=== PATIENT | female | born 1960 | race American Indian/Alaskan Native ===

== ENCOUNTER 2020-06-15 08:00 | Outpatient (CLI) | payer BC ==
[2020-06-15 18:12] LABS: BASOPHILS % (AUTO) 0.7 %; EOSINOPHILS # (AUTO) 0.1 10^3/uL (0.0-0.7); EOSINOPHILS % (AUTO) 1.7 %; HGB - HEMOGLOBIN 14.3 g/dL (12.0-16.0); LYMPHOCYTES # (AUTO) 1.2 10^3/uL (1.5-3.5); LYMPHOCYTES % (AUTO) 21.1 %; MEAN CORPUSCULAR HGB CONC 32.7 g/dL (32.0-36.0); MEAN CORPUSCULAR VOLUME 85.7 fL (81.0-99.0); MEAN PLATELET VOLUME 11.6 fL (7.9-10.8); MONOCYTES # (AUTO) 0.3 10^3/uL (0.0-1.0); MONOCYTES % (AUTO) 4.9 %; NEUTROPHILS # (AUTO) 4.2 10^3/uL (1.5-6.6); NEUTROPHILS % (AUTO) 71.4 %; PLT - PLATELET COUNT 243 10^3/uL (130-450); RED CELL DISTRIBUTION WIDTH 13.7 % (12.0-15.0); WHITE BLOOD COUNT 5.9 x10^3/uL (4.8-10.8)
[2020-06-15 19:41] LABS: ALBUMIN 4.6 g/dL (3.2-5.5); ALBUMIN/GLOBULIN RATIO 1.5 (1.0-2.2); ALKALINE PHOSPHATASE 63 IU/L (42-121); ALT ALANINE AMINOTRANSFERASE 73 IU/L (10-60); AST ASPARTATE AMINOTRANSFERASE 47 IU/L (10-42); BILIRUBIN,TOTAL 1.2 mg/dL (0.2-1.0); BUN - BLOOD UREA NITROGEN 13 mg/dL (6-20); CALCIUM 9.7 mg/dL (8.5-10.3); CARBON DIOXIDE - CO2 24 mmol/L (21-32); CHLORIDE 104 mmol/L (101-111); CHOL/HDL RATIO 4.5 (<4.4); CHOLESTEROL 276 mg/dL; CREATININE 0.7 mg/dL (0.4-1.0); GLUCOSE 98 mg/dL (70-100); HDL CHOLESTEROL 62 mg/dL; LDL CHOLESTEROL,CALCULATED 197 mg/dL; LDL/HDL RATIO 3.2 (<4.4); SODIUM 141 mmol/L (135-145); TOTAL PROTEIN 7.6 g/dL (6.7-8.2); VLDL CHOLESTEROL 17 mg/dL
== END 2020-06-15 23:59 | disposition home or self-care (01) ==
LOC: LAB.WCP 08:00
PROVIDERS: ATTEND Nurse Practitioner
DX: Z13.220 Encounter for screening for lipoid disorders (principal); Z13.228 Encounter for screening for other metabolic disorders; J45.909 Unspecified asthma, uncomplicated; Z85.3 Personal history of malignant neoplasm of breast; E55.9 Vitamin D deficiency, unspecified
CPT/HCPCS: 36415; 80053; 80061; 82306; 83721; 84443; 85025

== ENCOUNTER 2020-08-09 08:00 | Outpatient (CLI) | payer BC ==
[2020-08-10 10:58] LABS: BILIRUBIN,URINE NEGATIVE (NEGATIVE); GLUCOSE, URINE (UA) NEGATIVE (NEGATIVE); KETONES,URINE (UA) NEGATIVE (NEGATIVE); LEUKOCYTE ESTERASE, URINE NEGATIVE (NEGATIVE); NITRITE,URINE NEGATIVE (NEGATIVE); OCCULT BLOOD,URINE NEGATIVE (NEGATIVE); PH,URINE 5.5 PH (5.0-7.5); PROTEIN,URINE NEGATIVE (NEGATIVE); UROBILINOGEN,URINE 0.2 (NORMAL) E.U./dL (NORMAL)
[2020-08-10 11:03] LABS: CLARITY,URINE CLOUDY (CLEAR)
[2020-08-10 11:23] LABS: BACTERIA,URINE Few /HPF (None Seen); RBC,URINE None Seen /HPF (0-5); SQUAMOUS EPITHELIAL CELL,UR FEW Squamous (<= Few)
[2020-08-10 11:24] LABS: AMORPHOUS SEDIMENT,UR Moderate /LPF
== END 2020-08-09 23:59 | disposition home or self-care (01) ==
LOC: LAB.R 08:00
PROVIDERS: ATTEND Obstetrics & Gynecology
DX: R30.0 Dysuria (principal)
CPT/HCPCS: 81001; 87086

== ENCOUNTER 2020-09-29 08:00 | Outpatient (CLI) | payer BC ==
[2020-09-29 18:29] LABS: BILIRUBIN,URINE NEGATIVE (NEGATIVE); GLUCOSE, URINE (UA) NEGATIVE (NEGATIVE); KETONES,URINE (UA) NEGATIVE (NEGATIVE); LEUKOCYTE ESTERASE, URINE NEGATIVE (NEGATIVE); NITRITE,URINE NEGATIVE (NEGATIVE); OCCULT BLOOD,URINE NEGATIVE (NEGATIVE); PROTEIN,URINE NEGATIVE (NEGATIVE); UROBILINOGEN,URINE 0.2 (NORMAL) E.U./dL (NORMAL)
[2020-09-29 18:45] LABS: BACTERIA,URINE None Seen /HPF (None Seen); CLARITY,URINE CLEAR (CLEAR); RBC,URINE None Seen /HPF (0-5); SQUAMOUS EPITHELIAL CELL,UR RARE Squamous (<= Few); WBC,URINE 0-3 /HPF (0-5)
[2020-09-29 18:53] LABS: ALBUMIN 4.6 g/dL (3.2-5.5); ALBUMIN/GLOBULIN RATIO 1.6 (1.0-2.2); ALKALINE PHOSPHATASE 63 IU/L (42-121); ALT ALANINE AMINOTRANSFERASE 52 IU/L (10-60); AST ASPARTATE AMINOTRANSFERASE 41 IU/L (10-42); BILIRUBIN,TOTAL 0.6 mg/dL (0.2-1.0); BUN - BLOOD UREA NITROGEN 13 mg/dL (6-20); CALCIUM 9.1 mg/dL (8.5-10.3); CARBON DIOXIDE - CO2 26 mmol/L (21-32); CHLORIDE 103 mmol/L (101-111); CHOLESTEROL 211 mg/dL; CREATININE 0.7 mg/dL (0.4-1.0); GFR - MDRD 85 (>89); GLUCOSE 95 mg/dL (70-100); HDL CHOLESTEROL 52 mg/dL; LDL CHOLESTEROL,CALCULATED 143 mg/dL; POTASSIUM 4.1 mmol/L (3.5-5.0); SODIUM 137 mmol/L (135-145); TOTAL PROTEIN 7.5 g/dL (6.7-8.2); TRIGLYCERIDES 81 mg/dL; VLDL CHOLESTEROL 16 mg/dL
[2020-09-29 18:54] LABS: CHOL/HDL RATIO 4.1 (<4.4); LDL/HDL RATIO 2.8 (<4.4)
== END 2020-09-29 23:59 | disposition home or self-care (01) ==
LOC: LAB.WCP 08:00
PROVIDERS: ATTEND Obstetrics & Gynecology
DX: E78.5 Hyperlipidemia, unspecified (principal); R79.89 Other specified abnormal findings of blood chemistry; E55.9 Vitamin D deficiency, unspecified; R30.0 Dysuria
CPT/HCPCS: 36415; 80053; 80061; 81001; 82306; 83721; 87086

== ENCOUNTER 2020-11-22 12:26 | Outpatient (CLI) | payer BC ==
--- NOTE | 2020-11-23 13:16 | Mammography Report ---
BILATERAL DIGITAL SCREENING MAMMOGRAM 3D/2D WITH AUGMENTATION: 11/22/2020 CLINICAL: Routine screening. Comparison is made to exam dated: 01/08/2020 [facility]. The tissue of both breasts is predominantly fatty. Right breast implant is stable. Left breast implant is intact. No significant masses, calcifications, or other findings are seen in either breast. There has been no significant interval change. IMPRESSION: NEGATIVE There is no mammographic evidence of malignancy. A 1 year screening mammogram is recommended. This exam was interpreted at Station ID: [id number]. NOTE: For mammograms, a report in lay terms will be sent to the patient. Approximately 15% of breast malignancies will not be visualized mammographically. In the management of a palpable breast mass, a negative mammogram must not discourage biopsy of a clinically suspicious lesion. Electronically Signed By: Dangelo Rios M.D., jr/trish:11/22/2020 15:02:34 ACR BI-RADS Category 1: Negative 3341F PARENCHYMAL PATTERN: (F) - The breast(s) demonstrate(s) diffuse fatty replacement. BI-RADS CATEGORY: (1) - 1 RECOMMENDATION: (ANNUAL) - Recommend routine annual screening mammography. [id number] 1 year screening LATERALITY: (B)
== END 2020-11-22 12:27 | disposition home or self-care (01) ==
LOC: DI 12:26
DX: Z12.31 Encounter for screening mammogram for malignant neoplasm of breast (principal); Z98.82 Breast implant status

== ENCOUNTER 2021-01-31 14:19 | Outpatient (CLI) | payer BC ==
--- NOTE | 2021-01-31 17:47 | XRAY Report ---
PROCEDURE: Lumbar Spine 2 View INDICATIONS: LOW BACK PX TECHNIQUE: 3 views of the lumbar spine were acquired. COMPARISON: None. FINDINGS: Bones: There is apparent lumbarization of S1, with 6 bar-type vertebral bodies noted. Mild degenerati ve anterolisthesis of L4 on L5 and of L3 on L4. Multilevel facet arthropathy. Suspect canal stenosis. No vertebral body compression fractures. No suspicious bony lesions. Soft tissues: Overlying bowel gas pattern is normal. No suspicious soft tissue calcifications. IMPRESSION: 1. There apparently are 6 nonrib-bearing lumbar vertebral bodies. Careful correlation is suggested if surgery is considered. 2. Lower lumbar facet arthropathy with degenerative anterolisthesis. Suspect canal stenosis. No evidence acute bony abnormality of the lumbar spine. If clinical suspicion and/or symptoms persist, further assessment with repeat plain films or advanced imaging (e.g., CT, MRI, or bone scan) may be helpful for further assessment. Reviewed by: Isauro Zarate MD on 01/31/2021 5:46 PM PDT Approved by: Isauro Zarate MD on 01/31/2021 5:46 PM PDT Station ID: [id number]
== END 2021-01-31 14:20 | disposition home or self-care (01) ==
LOC: DI.N 14:19
PROVIDERS: ATTEND Family Medicine
DX: M47.816 Spondylosis without myelopathy or radiculopathy, lumbar region (principal); M43.16 Spondylolisthesis, lumbar region

== ENCOUNTER 2021-05-31 08:00 | Outpatient (CLI) | payer BC | END 2021-05-31 23:59 | LOC: LAB.N 08:00 | PROVIDERS: ATTEND Family Medicine | DX: R30.0 Dysuria (principal) | CPT/HCPCS: 87086 ==

== ENCOUNTER 2021-07-25 08:00 | Outpatient (CLI) | payer BC ==
[2021-07-25 20:11] LABS: BASOPHILS % (AUTO) 0.7 %; EOSINOPHILS # (AUTO) 0.2 10^3/uL (0.0-0.7); HCT - HEMATOCRIT 45.3 % (37.0-47.0); HGB - HEMOGLOBIN 14.4 g/dL (12.0-16.0); LYMPHOCYTES # (AUTO) 1.4 10^3/uL (1.5-3.5); LYMPHOCYTES % (AUTO) 25.4 %; MEAN CORPUSCULAR HEMOGLOBIN 27.9 pg (27.0-31.0); MEAN CORPUSCULAR HGB CONC 31.8 g/dL (32.0-36.0); MEAN CORPUSCULAR VOLUME 87.6 fL (81.0-99.0); MEAN PLATELET VOLUME 12.1 fL (7.9-10.8); MONOCYTES # (AUTO) 0.3 10^3/uL (0.0-1.0); MONOCYTES % (AUTO) 6.1 %; NEUTROPHILS # (AUTO) 3.6 10^3/uL (1.5-6.6); NEUTROPHILS % (AUTO) 64.6 %; PLT - PLATELET COUNT 240 10^3/uL (130-450); RED BLOOD COUNT 5.17 10^6/uL (4.20-5.40); RED CELL DISTRIBUTION WIDTH 13.9 % (12.0-15.0); WHITE BLOOD COUNT 5.6 x10^3/uL (4.8-10.8)
[2021-07-25 20:32] LABS: ALBUMIN 4.5 g/dL (3.2-5.5); ALBUMIN/GLOBULIN RATIO 1.7 (1.0-2.2); ALKALINE PHOSPHATASE 63 IU/L (42-121); ALT ALANINE AMINOTRANSFERASE 50 IU/L (10-60); AST ASPARTATE AMINOTRANSFERASE 34 IU/L (10-42); BILIRUBIN,TOTAL 0.5 mg/dL (0.2-1.0); BUN - BLOOD UREA NITROGEN 14 mg/dL (6-20); CALCIUM 9.1 mg/dL (8.5-10.3); CARBON DIOXIDE - CO2 26 mmol/L (21-32); CHLORIDE 104 mmol/L (101-111); CHOL/HDL RATIO 4.4 (<4.4); CHOLESTEROL 259 mg/dL; CREATININE 0.7 mg/dL (0.4-1.0); GFR - MDRD 85 (>89); GLUCOSE 94 mg/dL (70-100); HDL CHOLESTEROL 59 mg/dL; LDL CHOLESTEROL,CALCULATED 178 mg/dL; POTASSIUM 4.2 mmol/L (3.5-5.0); SODIUM 140 mmol/L (135-145); TOTAL PROTEIN 7.1 g/dL (6.7-8.2); TRIGLYCERIDES 110 mg/dL; VLDL CHOLESTEROL 22 mg/dL
[2021-07-25 21:00] LABS: THYROID STIMULATING HORMONE 4.09 uIU/mL (0.34-5.60)
== END 2021-07-25 23:59 | disposition home or self-care (01) ==
LOC: LAB.WCP 08:00
PROVIDERS: ATTEND Family Medicine
DX: E78.5 Hyperlipidemia, unspecified (principal); R79.89 Other specified abnormal findings of blood chemistry; E55.9 Vitamin D deficiency, unspecified
CPT/HCPCS: 36415; 80053; 80061; 82306; 83721; 84443; 85025

== ENCOUNTER 2021-07-27 08:00 | Outpatient (CLI) | payer BC ==
[2021-07-27 22:36] LABS: BACTERIAL VAGINOSIS DNA NEGATIVE (NEGATIVE); CANDIDA GLABRATA DNA NEGATIVE (NEGATIVE); CANDIDA GROUP DNA NEGATIVE (NEGATIVE); CANDIDA KRUSEI DNA NEGATIVE (NEGATIVE); TRICHOMONAS VAGINALIS DNA NEGATIVE (NEGATIVE)
== END 2021-07-27 23:59 ==
LOC: LAB 08:00
PROVIDERS: ATTEND Obstetrics & Gynecology
DX: N76.0 Acute vaginitis (principal)
CPT/HCPCS: 87661; 87801

== ENCOUNTER 2021-11-23 12:25 | Outpatient (CLI) | payer BC ==
--- NOTE | 2021-11-25 16:22 | Mammography Report ---
BILATERAL DIGITAL SCREENING MAMMOGRAM 3D/2D WITH AUGMENTATION: 11/23/2021 CLINICAL: Routine screening. Personal history of right breast cancer. Comparison is made to exams dated: 11/22/2020 mammogram - [facility], 01/08/2020 mamm ogram, 07/07/2019 breast MRI, and 12/20/2018 ultrasound - [facility]. The tissue of both breasts is predominantly fatty. Right breast implant is stable. Left breast implant is intact. No significant masses, calcifications, or other findings are seen in either breast. There has been no significant interval change. IMPRESSION: NEGATIVE There is no mammographic evidence of malignancy. A 1 year screening mammogram is recommended. This exam was interpreted at Station ID: [id number]. NOTE: For mammograms, a report in lay terms will be sent to the patient. Approximately 15% of breast malignancies will not be visualized mammographically. In the management of a palpable breast mass, a negative mammogram must not discourage biopsy of a clinically suspicious lesion. Electronically Signed By: Dangelo Rios M.D., jr/trish:11/23/2021 14:45:42 ACR BI-RADS Category 1: Negative 3341F PARENCHYMAL PATTERN: (F) - The breast(s) demonstrate(s) diffuse fatty replacement. BI-RADS CATEGORY: (1) - 1 RECOMMENDATION: (ANNUAL) - Recommend routine annual screening mammography. [id number] 1 year screening LATERALITY: (B)
== END 2021-11-23 12:26 | disposition home or self-care (01) ==
LOC: DI.N 12:25
DX: Z12.31 Encounter for screening mammogram for malignant neoplasm of breast (principal); Z85.3 Personal history of malignant neoplasm of breast

== ENCOUNTER 2022-05-03 12:09 | Outpatient (CLI) | payer BC ==
--- NOTE | 2022-05-03 15:05 | Ultrasound Report ---
PROCEDURE: Retroperitoneal INDICATIONS: OVERACTIVE BLADDER, NOCTURIA TECHNIQUE: Real-time scanning was performed of the retroperitoneal organs, with image documentation. COMPARISON: None. FINDINGS: Kidneys: Kidneys are normal in size. Right kidney measures 11.2 cm long; left kidney measures 11.0 cm long. Right renal cortical thickness is 1.3 cm; left renal cortical thickness is 1.5 cm. No aleena id masses, hydronephrosis, or nephrolithiasis. There is a 0.8 cm simple appearing cyst in the medial aspect of the left kidney. Pancreas: Visualized portions of the pancreas are sonographically normal. Aorta: Visualized aorta is normal in caliber at 3 cm or less. Iliac arteries: Proximal common iliac arteries are normal in caliber at 2.5 cm or less. IVC: Intrahepatic inferior vena cava is patent. Bladder: Pre-void bladder volume is 268.3 mL. Post-void residual is 3.8 mL. Pre-void images demons trate no intraluminal masses or stones. On pre-void images, both ureteral jets are noted with color Doppler interrogation. (Of note, ureteral jets may not be detectable in up to 25% of cases due to in sufficient differences in specific gravity between ureteral and bladder urine). Miscellaneous: No free abdominal fluid. Note is made of diffuse increased hepatic echotexture, like ly secondary to fatty infiltration. IMPRESSION: 1. Normal ultrasound appearance of kidneys. No hydronephrosis. 2. A small simple cyst in the left kidney. 3. Normal appearance of urinary bladder. No significant post void residual. 4. Diffuse increased hepatic echotexture, most likely secondary to hepatic fatty infiltration. Other hepatocellular disease could have a similar appearance. Please correlate with liver enzymes. Reviewed by: Sanjuana Corona MD on 05/03/2022 3:04 PM PDT Approved by: Sanjuana Corona MD on 05/03/2022 3:04 PM PDT Station ID: [id number]
== END 2022-05-03 12:10 | disposition home or self-care (01) ==
LOC: DI 12:09
PROVIDERS: ATTEND Urology
DX: N32.81 Overactive bladder (principal); R35.1 Nocturia; N28.1 Cyst of kidney, acquired

== ENCOUNTER 2022-06-22 12:31 | Outpatient (CLI) | payer BC ==
--- NOTE | 2022-06-22 17:46 | DEXA Report ---
PROCEDURE: Dexa Spine and/or Hip INDICATIONS: POST MENOPAUSAL TECHNIQUE: Dual energy x-ray absorptiometry (DXA) was performed on a Storenvy System. Regions measur ed are the AP Spine, femoral neck, and if needed forearm. COMPARISON: None. FINDINGS: Lumbar Spine: Bone Mineral Density 1.089 g/cm/cm,T score -0.8. Left Femoral Neck: Bone Mineral Density 1.144 g/cm/cm, T score 1.1. Left Hip: Bone Mineral Density 1.007 g/cm/cm,T score -0.2. (T score greater or equal to -1.0: NORMAL) (T score from -1.1 to -2.4: OSTEOPENIA) (T score less than or equal to -2.5 to: OSTEOPOROSIS) Impression: Normal bone mineral density. Patients with diagnosis of osteoporosis or osteopenia should have regular bone mineral density assess ment. For those eligible for Medicare, routine testing is allowed once every 2 years. Testing frequ ency can be increased for patients who have rapidly progressing disease or for those who are receivin g medical therapy to restore bone mass. Reviewed by: Manolo Islas MD on 06/22/2022 5:45 PM PST Approved by: Manolo Islas MD on 06/22/2022 5:45 PM PST Station ID: [id number]
== END 2022-06-22 12:32 | disposition home or self-care (01) ==
LOC: DI 12:31
PROVIDERS: ATTEND Nurse Practitioner Family
DX: Z78.0 Asymptomatic menopausal state (principal)

== ENCOUNTER 2022-07-28 08:00 | Outpatient (CLI) | payer BC ==
[2022-07-28 16:36] LABS: BILIRUBIN,URINE NEGATIVE (NEGATIVE); GLUCOSE, URINE (UA) NEGATIVE (NEGATIVE); KETONES,URINE (UA) NEGATIVE (NEGATIVE); LEUKOCYTE ESTERASE, URINE NEGATIVE (NEGATIVE); NITRITE,URINE NEGATIVE (NEGATIVE); OCCULT BLOOD,URINE NEGATIVE (NEGATIVE); PROTEIN,URINE NEGATIVE (NEGATIVE); UROBILINOGEN,URINE 0.2 (NORMAL) E.U./dL (NORMAL)
[2022-07-28 16:40] LABS: CLARITY,URINE CLEAR (CLEAR)
[2022-07-28 16:54] LABS: BACTERIA,URINE None Seen /HPF (None Seen); RBC,URINE 0-5 /HPF (0-5); SQUAMOUS EPITHELIAL CELL,UR FEW Squamous (<= Few); WBC,URINE 0-3 /HPF (0-5)
== END 2022-07-28 23:59 | disposition home or self-care (01) ==
LOC: LAB 08:00
PROVIDERS: ATTEND Nurse Practitioner
DX: R30.0 Dysuria (principal)
CPT/HCPCS: 81001; 87086

== ENCOUNTER 2022-08-14 10:06 | Outpatient (CLI) | payer BC ==
[2022-08-14 12:10] LABS: BASOPHILS % (AUTO) 0.7 %; EOSINOPHILS # (AUTO) 0.2 10^3/uL (0.0-0.7); EOSINOPHILS % (AUTO) 3.2 %; HCT - HEMATOCRIT 43.5 % (37.0-47.0); HGB - HEMOGLOBIN 13.8 g/dL (12.0-16.0); LYMPHOCYTES # (AUTO) 1.6 10^3/uL (1.5-3.5); MEAN CORPUSCULAR HEMOGLOBIN 27.2 pg (27.0-31.0); MEAN CORPUSCULAR HGB CONC 31.7 g/dL (32.0-36.0); MEAN CORPUSCULAR VOLUME 85.8 fL (81.0-99.0); MEAN PLATELET VOLUME 11.6 fL (7.9-10.8); MONOCYTES # (AUTO) 0.4 10^3/uL (0.0-1.0); MONOCYTES % (AUTO) 6.6 %; NEUTROPHILS # (AUTO) 3.4 10^3/uL (1.5-6.6); NEUTROPHILS % (AUTO) 60.5 %; PLT - PLATELET COUNT 240 10^3/uL (130-450); RED BLOOD COUNT 5.07 10^6/uL (4.20-5.40); RED CELL DISTRIBUTION WIDTH 14.6 % (12.0-15.0); WHITE BLOOD COUNT 5.6 x10^3/uL (4.8-10.8)
[2022-08-14 12:43] LABS: ESTIMATED AVERAGE GLUCOSE 117 mg/dL (70-100); HEMOGLOBIN A1c% 5.7 % (4.27-6.07)
[2022-08-14 13:04] LABS: THYROID STIMULATING HORMONE 4.98 uIU/mL (0.34-5.60)
[2022-08-14 13:24] LABS: ALBUMIN 4.2 g/dL (3.2-5.5); ALBUMIN/GLOBULIN RATIO 1.4 (1.0-2.2); ALKALINE PHOSPHATASE 55 IU/L (42-121); ALT ALANINE AMINOTRANSFERASE 62 IU/L (10-60); AST ASPARTATE AMINOTRANSFERASE 40 IU/L (10-42); BILIRUBIN,TOTAL 1.1 mg/dL (0.2-1.0); BUN - BLOOD UREA NITROGEN 16 mg/dL (6-20); CALCIUM 9.1 mg/dL (8.5-10.3); CARBON DIOXIDE - CO2 26 mmol/L (21-32); CHLORIDE 101 mmol/L (101-111); CHOLESTEROL 269 mg/dL; CREATININE 0.7 mg/dL (0.4-1.0); GFR - MDRD 85 (>89); GLUCOSE 99 mg/dL (70-100); HDL CHOLESTEROL 56 mg/dL; LDL CHOLESTEROL,CALCULATED 184 mg/dL; POTASSIUM 4.1 mmol/L (3.5-5.0); SODIUM 135 mmol/L (135-145); TOTAL PROTEIN 7.1 g/dL (6.7-8.2); TRIGLYCERIDES 144 mg/dL; VLDL CHOLESTEROL 29 mg/dL
[2022-08-14 13:25] LABS: CHOL/HDL RATIO 4.8 (<4.4); LDL/HDL RATIO 3.3 (<4.4)
== END 2022-08-14 10:07 | disposition home or self-care (01) ==
LOC: LAB.N 10:06
PROVIDERS: ATTEND Nurse Practitioner Family
DX: Z00.00 Encounter for general adult medical examination without abnormal findings (principal); E55.9 Vitamin D deficiency, unspecified
CPT/HCPCS: 36415; 80053; 80061; 82306; 83036; 83721; 84443; 85025

== ENCOUNTER 2022-11-30 12:39 | Outpatient (CLI) | payer BC ==
--- NOTE | 2022-12-01 09:51 | Mammography Report ---
BILATERAL DIGITAL SCREENING MAMMOGRAM 3D/2D WITH AUGMENTATION: 11/30/2022 CLINICAL: Routine screening. Personal history of right breast cancer. Comparison is made to exams dated: 11/22/2020 mammogram, 11/23/2021 mammogram - [facility], and 01/08/2020 mammogram - [facility]. Both breasts are almost entirely fatty (category a/<25% glandular tissue). Bilateral breast implants are stable. No significant masses, calcifications, or other findings are seen in either breast. There has been no significant interval change. IMPRESSION: BENIGN There is no mammographic evidence of malignancy. A 1 year screening mammogram is recommended. This exam was interpreted at Station ID: [id number]. NOTE: For mammograms, a report in lay terms will be sent to the patient. Approximately 15% of breast malignancies will not be visualized mammographically. In the management of a palpable breast mass, a negative mammogram must not discourage biopsy of a clinically suspicious lesion. Electronically Signed By: Cooper mejia/trish:11/30/2022 13:39:39 letter sent: No_Letter ACR BI-RADS Category 2: Benign Finding(s) 3342F PARENCHYMAL PATTERN: (F) - The breast(s) demonstrate(s) diffuse fatty replacement. BI-RADS CATEGORY: (2) - 2 Mammogram [id number] 1 year screening LATERALITY: (B)
== END 2022-11-30 12:40 | disposition home or self-care (01) ==
LOC: DI 12:39
DX: Z12.31 Encounter for screening mammogram for malignant neoplasm of breast (principal); Z85.3 Personal history of malignant neoplasm of breast

== ENCOUNTER 2023-07-03 12:42 | Emergency (ER) | payer BC ==
[2023-07-03 13:10] VITALS: BP 136/98; O2SAT 97
[2023-07-03] MEDS ORDERED: NIRMATRELVIR/RITONAVIR PREPACK PO STA (14:07)
--- NOTE | 2023-07-03 14:15 | ED Physician Documentation ---
PD HPI URI - Stated complaint Stated Complaint: FEVER/HEAD PX/CHILLS - Chief complaint Chief Complaint: Fever - History obtained from History obtained from: Patient - Additional information Additional information: Patient is a 62-year-old female presenting for medications for presumed COVID. Patient states her tested positive yesterday at the walk-in clinic and was sent to the ER to receive Paxlovid. He is a diabetic. She was told by the walk-in clinic that she should also come to the ER for Paxlovid. She has been having body aches, fatigue, nasal congestion for the past 3 days. Their home COVID tests are so she has not taken one. Denies chest pain, cough or shortness of air. Review of Systems Nose: reports: Congestion Cardiac: denies: Chest pain / pressure Respiratory: denies: Dyspnea GI: denies: Abdominal Pain, Vomiting Neurologic: denies: Headache PD PAST MEDICAL HISTORY - Past Medical History Past Medical History: Yes Cardiovascular: None Respiratory: None Neuro: None Endocrine/Autoimmune: None GI: None : None Psych: None Musculoskeletal: None Derm: None Other Past Medical History: Breast Ca - Past Surgical History Past Surgical History: Yes /PHOTOLITH OPERATOR: Other - Present Medications Home Medications: Ambulatory Orders Medication Instructions Recorded Confirmed Ondansetron Odt [Zofran] 4 mg TL Q6H PRN #10 tablet 07/03/23 - Allergies Allergies/Adverse Reactions: Allergies Allergy/AdvReac Type Severity Reaction Status Date / Time adhesive Allergy Unknown Verified 07/03/23 13:04 codeine Allergy Unknown Verified 07/03/23 13:04 Latex, Natural Rubber Allergy Unknown Verified 07/03/23 13:04 - Social History Does the pt smoke?: No Smoking Status: Never smoker Does the pt drink ETOH?: No Does the pt have substance abuse?: No - Immunizations Immunizations are current?: No Immunizations: TDAP >10years/unknown PD ED PE NORMAL - General General: Alert and oriented X 3, No acute distress, Well developed/nourished - HEENT HEENT: Atraumatic, Moist mucous membranes, Pharynx benign - Neck Neck: Supple, no meningeal sign - Cardiac Cardiac: RRR, Strong equal pulses - Respiratory Respiratory: No respiratory distress, Clear bilaterally - Abdomen Abdomen: Soft, Non tender, Non distended - Derm Derm: Warm and dry - Neuro Neuro: Normal speech Results - Vitals Vitals: Vital Signs - 24 hr 07/03/23 12:59 Temperature 37 C Heart Rate 70 Respiratory 16 Rate Blood Pressure 136/98 H O2 Saturation 97 Oxygen O2 Source Room air PD Medical Decision Making - ED course ED course: Pt with URI symptoms x 3 days. VSS. is positive for COVID. Patient was told by walk-in clinic to come to ER for Paxlovid. She does have a history of asthma. She is not on any medications. Patient is interested in Paxlovid. We reviewed risks and benefits and patient is agreeable. Also reports nausea so prescription for Zofran was sent. Patient is not hypoxic and does Not have clinical signs of sepsis. A COVID test was ordered but apparently was not performed by RN prior to discharge. Would highly suspect that this patient also has COVID given that her is at home with a recent positive test with the same symptoms. Patient counseled on concerning symptoms to return for. Departure - Departure Disposition: Home, Self Care Clinical Impression: Viral illness Condition: Stable Instructions: ED Viral Syndrome Prescriptions: Ondansetron Odt [Zofran] 4 mg TL Q6H PRN #10 tablet PRN Reason: Nausea / Vomiting Comments: Your symptoms are likely related to COVID-19 given your known exposure. After discussion of the risks and benefits we have started you on an antiviral medicine called Paxlovid. This is not a cure for COVID but the goal of this medication is to prevent serious complications requiring hospitalization. I have also sent an antinausea medicine to [facility]. Please continue with acetaminophen or ibuprofen as needed for fever or bodyaches, hydration, plenty of rest. Quarantine per CDC guidelines. You have a Covid test pending. You need to self quarantine until the result is done and negative. Do not leave your house. Do not get near anybody. The results should be done in 4 hours. We will call with a positive result, the fastest way to get a negative result for confirmation though is to go to the hospital website at [email or web address], click on the my amprice tab and sign up for the patient portal. If your COVID test is negative then I would not recommend taking Paxlovid. If any friends or family get sick and would like to have a Covid test done, but do not have signs or symptoms that would necessitate being hospitalized, there are multiple local options for Covid testing. [facility] keeps an updated list of testing and vaccination options at: [email or web address]. Forms: PCP List Discharge Date/Time: 07/03/23 14:37
== END 2023-07-03 14:37 | disposition home or self-care (01) ==
LOC: ED 12:42
DX: B34.9 Viral infection, unspecified (principal)
CPT/HCPCS: 99283; J3490

== ENCOUNTER 2023-09-12 08:11 | Outpatient (CLI) | payer BC ==
[2023-09-12 12:18] LABS: BASOPHILS # (AUTO) 0.1 10^3/uL (0.0-0.1); EOSINOPHILS # (AUTO) 0.2 10^3/uL (0.0-0.7); EOSINOPHILS % (AUTO) 2.9 %; HCT - HEMATOCRIT 44.7 % (37.0-47.0); LYMPHOCYTES # (AUTO) 1.8 10^3/uL (1.5-3.5); LYMPHOCYTES % (AUTO) 29.7 %; MEAN CORPUSCULAR HEMOGLOBIN 27.5 pg (27.0-31.0); MEAN CORPUSCULAR HGB CONC 31.3 g/dL (32.0-36.0); MEAN CORPUSCULAR VOLUME 87.6 fL (81.0-99.0); MEAN PLATELET VOLUME 11.6 fL (7.9-10.8); MONOCYTES # (AUTO) 0.4 10^3/uL (0.0-1.0); MONOCYTES % (AUTO) 6.9 %; NEUTROPHILS # (AUTO) 3.5 10^3/uL (1.5-6.6); NEUTROPHILS % (AUTO) 59.3 %; PLT - PLATELET COUNT 252 10^3/uL (130-450); RED CELL DISTRIBUTION WIDTH 14.6 % (12.0-15.0); WHITE BLOOD COUNT 5.9 x10^3/uL (4.8-10.8)
[2023-09-12 13:08] LABS: ALBUMIN 4.5 g/dL (3.2-5.5); ALBUMIN/GLOBULIN RATIO 1.6 (1.0-2.2); ALKALINE PHOSPHATASE 56 IU/L (42-121); ALT ALANINE AMINOTRANSFERASE 104 IU/L (10-60); AST ASPARTATE AMINOTRANSFERASE 57 IU/L (10-42); BILIRUBIN,TOTAL 0.7 mg/dL (0.2-1.0); BUN - BLOOD UREA NITROGEN 18 mg/dL (6-20); CALCIUM 9.7 mg/dL (8.5-10.3); CARBON DIOXIDE - CO2 29 mmol/L (21-32); CHLORIDE 105 mmol/L (101-111); CHOL/HDL RATIO 4.2 (<4.4); CHOLESTEROL 236 mg/dL; CREATININE 0.7 mg/dL (0.6-1.3); GFR - MDRD 84 (>89); GLUCOSE 101 mg/dL (74-104); HDL CHOLESTEROL 56 mg/dL; LDL CHOLESTEROL,CALCULATED 156 mg/dL; LDL/HDL RATIO 2.8 (<4.4); POTASSIUM 4.2 mmol/L (3.5-4.5); SODIUM 139 mmol/L (135-145); TOTAL PROTEIN 7.3 g/dL (6.4-8.9); TRIGLYCERIDES 120 mg/dL (48-352); VLDL CHOLESTEROL 24 mg/dL
[2023-09-12 13:22] LABS: THYROID STIMULATING HORMONE 5.66 uIU/mL (0.34-5.60)
[2023-09-12 14:48] LABS: ESTIMATED AVERAGE GLUCOSE 117 mg/dL (70-100); HEMOGLOBIN A1c% 5.7 % (4.27-6.07)
== END 2023-09-12 08:12 | disposition home or self-care (01) ==
LOC: LAB.N 08:11
PROVIDERS: ATTEND Nurse Practitioner Family
DX: E78.5 Hyperlipidemia, unspecified (principal); Z79.899 Other long term (current) drug therapy; Z13.1 Encounter for screening for diabetes mellitus
CPT/HCPCS: 36415; 80053; 80061; 83036; 83721; 84439; 84443; 85025

== ENCOUNTER 2023-12-10 10:30 | Outpatient (CLI) | payer BC ==
--- NOTE | 2023-12-11 10:18 | Mammography Report ---
BILATERAL DIGITAL SCREENING MAMMOGRAM 3D/2D WITH AUGMENTATION: 12/10/2023 CLINICAL: Routine screening. Personal history of right breast cancer. Comparison is made to exams dated: 11/30/2022 mammogram, 11/23/2021 mammogram, [facility] and [facility] - [facility]. Both breasts are almost entirely fatty (category a/<25% glandular tissue). Bilateral breast implants are stable. There is a biopsy clip in the right breast. No significant masses, calcifications, or other findings are seen in either breast. There has been no significant interval change. IMPRESSION: NEGATIVE There is no mammographic evidence of malignancy. A 1 year screening mammogram is recommended. This exam was interpreted at Station ID: [id number]. NOTE: For mammograms, a report in lay terms will be sent to the patient. Approximately 15% of breast malignancies will not be visualized mammographically. In the management of a palpable breast mass, a negative mammogram must not discourage biopsy of a clinically suspicious lesion. Electronically Signed By: Jaron Michael M.D. [facility]:12/10/2023 19:00:15 letter sent: No_Letter ACR BI-RADS Category 1: Negative 3341F PARENCHYMAL PATTERN: (F) - The breast(s) demonstrate(s) diffuse fatty replacement. BI-RADS CATEGORY: (1) - 1 RECOMMENDATION: (ANNUAL) - Recommend routine annual screening mammography. [id number] 1 year screening LATERALITY: (B)
== END 2023-12-10 10:31 | disposition home or self-care (01) ==
LOC: DI.N 10:30
DX: Z12.31 Encounter for screening mammogram for malignant neoplasm of breast (principal); Z85.3 Personal history of malignant neoplasm of breast

== ENCOUNTER 2024-03-27 11:22 | Outpatient (CLI) | payer MEDICARE, BC ==
[2024-03-27 11:46] LABS: CREATININE 0.8 mg/dL (0.6-1.3)
[2024-03-27] MEDS ORDERED: GADOTERATE MEGLUMINE 10 MMOL/20 ML VIAL ONE (11:56)
[2024-03-27] MEDS: GADOTERATE MEGLUMINE 10 MMOL/20 ML VIAL IVP ONE (13:59)
--- NOTE | 2024-03-31 08:10 | MRI Report ---
BREAST MRI OF BOTH BREASTS: 03/27/2024 CLINICAL: Patient presents for routine screening. S/P bilateral augmentation. Personal history of светлана ast cancer. PROCEDURE: Breast BL W/WO INDICATIONS: Breast cancer history. CONTRAST: CLARISCAN 16.6 ML TECHNIQUE: The patient was placed prone in a dedicated breast imaging coil. Precontrast axial STIR and 3D spoil ed GE without fat saturation sequences were obtained. Both before and after bolus injection of contr ast, sequential 1-minute axial 3D spoiled GE with fat saturation sequences for 3 time points, with jimenez btraction images and maximum intensity projections (MIP's) generated. Delayed sagittal spoiled GE im ages with fat saturation were also obtained. Computer-aided detection, including computer algorithm analysis of MRI image data for lesion detectio n and characterization, pharmacokinetic analysis, with further physician review for interpretation, w as performed. COMPARISON: 12/10/2023, 11/30/2022 FINDINGS: Image quality: Diagnostic There is minimal background parenchymal enhancement. The breasts are almost entirely fatty. Right breast: Right breast clip. No suspicious mass or nonmass enhancement. Left breast: No suspicious mass or nonmass enhancement. Miscellaneous: Bilateral implants in place. Possible small fragmented inner wall is seen at the righ t superior component (15/27). No evidence of extracapsular rupture. No suspicious findings in the partially visualized anterior mediastinum or upper abdomen. In the upper sternum, there is an indeterminate enhancing lesion measuring 1.7 cm. IMPRESSION: BENIGN No suspicious findings in either breast. Right breast clip. Bilateral implants are in place. Possible small fragmented inner wall is seen at the right superior c omponent (15/27). No evidence of extracapsular rupture. BIRADS 2: Recommend return to screening mammography and possible supplemental screening MRI Indeterminate lesion in the upper sternum measuring 1.7 cm. Benign and malignant possible depending o n history. COMMENT: The imaging literature indicates that a negative contrast breast MRI examination has a high sensitivity and a moderate specificity for detecting and excluding invasive carcinomas to a detection threshold of 3-5 mm; nonetheless, appropriate clinical and mammographic follow-up are recommended. MRI is not sensitive for detecting DCIS (ductal carcinoma in situ) and may not detect large invasive neoplasms that show only minimal enhancement such as mucinous carcinoma. If there are suspicious sherita cifications or clinically worrisome palpable masses, then biopsy should still be considered. Invasiv e neoplasms can be hidden by co-existent and benign enhancement caused by mastitis, hormone therapy e ffects, radiation therapy, , and recent biopsy or surgery. False positive examinations can occur in a number of circumstances, including breasts that have recently been subject to invasive pro cedures and those that contain atypical ductal hyperplasia, hormonally stimulated glandular tissue, f at necrosis, or radial scars. This exam was interpreted at Station ID: [id number]. Electronically Signed By: Cooper Del Rio M.D. lc/:03/28/2024 11:47:58 letter sent: No_Letter ACR BI-RADS Category 2: Benign Finding(s) 3342F BI-RADS CATEGORY: (2) - 2 Mammo and MR [id number] return to screening LATERALITY: (B)
== END 2024-03-27 11:23 | disposition home or self-care (01) ==
LOC: LAB 11:22
PROVIDERS: ATTEND Nurse Practitioner
DX: Z15.01 Genetic susceptibility to malignant neoplasm of breast (principal); R92.8 Other abnormal and inconclusive findings on diagnostic imaging of breast; Z98.82 Breast implant status
CPT/HCPCS: 36415; 77049; 82565; A9575